=== PATIENT | female | born 1960 | race Caucasian/White ===

== ENCOUNTER 2017-05-23 15:08 | Emergency (ER) | payer SELFPAY ==
--- NOTE | 2017-05-23 15:39 | RAD ---
CHEST 2 VIEWS: Date: 05/23/17 HISTORY: Cough. COMPARISON: 07/14/13. FINDINGS: Cardiac silhouette and pulmonary vasculature are unremarkable. Mediastinum is midline. There is no co nfluent air space consolidation, pneumothorax, or pleural fluid evident. Metallic clips overlie the r ight upper quadrant of the abdomen. IMPRESSION: No active cardiopulmonary abnormalities are demonstrated. POS: [facility]
== END 2017-05-23 16:10 | disposition home or self-care (01) ==
LOC: NAV ERS 15:08
DX: J20.9 Acute bronchitis, unspecified (principal); E78.5 Hyperlipidemia, unspecified; F41.9 Anxiety disorder, unspecified
CPT/HCPCS: 71020

== ENCOUNTER 2018-07-19 14:06 | Emergency (ER) | payer SELFPAY ==
[~2018-07-19 14:06] MED LIST: Iopamidol 370 76% 100 ML VIAL ONE
[2018-07-19 16:24] LABS: ALT (SGPT) 10 U/L (8-55); AST (SGOT) 17 U/L (5-34); Albumin 4.3 g/dL (3.5-5.0); Alkaline Phosphatase 113 U/L (40-150); Anion Gap 13 mmol/L (10-20); BUN (Urea Nitrogen) 12 mg/dL (9.8-20.1); Bilirubin Negative (Negative); Bilirubin, Total 0.2 mg/dL (0.2-1.2); Blood, Urine Negative (Negative); Calc. Creatinine Clearance 0 mL/min (70-130); Calcium 9.8 mg/dL (7.8-10.44); Carbon Dioxide 27 mmol/L (22-29); Chloride 107 mmol/L (98-107); Clarity Clear (Clear); Estimated GFR-MDRD 69; Globulin 3.3 g/dL (2.4-3.5); Glucose 93 mg/dL (70-105); Glucose, Urine (Dipstick) Negative (Negative); Leukocyte Moderate (Negative); Lipase 34 U/L (8-78); Nitrite Negative (Negative); Potassium 3.6 mmol/L (3.5-5.1); Protein, Total 7.6 g/dL (6.0-8.3); Protein, Urine (Dipstick) Negative (Neg-Trace); Sodium 143 mmol/L (136-145); Urobilinogen 0.2 mg/dL (0.2-1.0); pH, Urine 6.5 (5.0-9.0)
[2018-07-19 16:35] LABS: #Basophils 0.1 thou/uL (0.0-0.2); #Eosinphils 0.1 thou/uL (0.0-0.7); #Lymphocytes 2.7 thou/uL (1.20-3.40); #Monocytes 0.4 thou/uL (0.11-0.59); #Neutrophils 3.9 thou/uL (1.40-6.50); %Eosinophils 1.3 % (0.0-10.0); %Lymphocytes 38.3 % (21.0-51.0); %Monocytes 5.3 % (0.0-10.0); %Neutrophils 54.1 % (42.0-75.0); Hemoglobin 11.9 g/dL (12.0-16.0); Mean Corpuscular HGB CONC 32.5 g/dL (32.0-36.0); Mean Corpuscular Hemoglobin 28.6 pg (27.0-31.0); Mean Corpuscular Volume 88.1 fL (78.0-98.0); Mean Platelet Volume 6.7 fL (7.4-10.4); Platelet Count 339 thou/uL (130-400); RBC Distribution Width 13.3 % (11.5-14.5); Red Blood Cell (RBC) Count 4.15 mill/uL (4.20-5.40); White Blood Cell (WBC) Count 7.2 thou/uL (4.8-10.8)
[2018-07-19 16:37] LABS: Bacteria/HPF None Seen HPF (None Seen); RBC/HPF None Seen HPF (0-3); Squamous Epithelial None Seen HPF (0-3); WBC/HPF 0-3 HPF (0-3)
--- NOTE | 2018-07-19 17:21 | RAD ---
CHEST TWO VIEWS: 07/19/18 HISTORY: Chest pain. COMPARISON: 05/20/18. FINDINGS: The cardiac silhouette and pulmonary vasculature are unremarkable. Mediastinum is midline. No conflue nt air space consolidation, pneumothorax or pleural fluid. Numerous metallic clips overlie the right upper quadrant. IMPRESSION: No active cardiopulmonary abnormalities are demonstrated. POS: [facility]
--- NOTE | 2018-07-19 18:40 | CT ---
CT ABDOMEN AND PELVIS WITH IV CONTRAST: 07/19/18 HISTORY: Abdominal pain. COMPARISON: 05/25/18. FINDINGS: Tiny cyst within the left liver lobe is stable. Gallbladder is surgically absent. Gallbladder is surg ically absent. Postoperative changes of the anterior abdominal wall appear to have increased since th e previous exam. No evidence of bowel obstruction. Scattered diverticula without inflammation. Retroa ortic left renal vein. Urinary bladder is incompletely distended. No evidence of bowel obstruction. IMPRESSION: Chronic type findings are stable. No evidence of bowel obstruction, inflammation, or other acute abno rmalities. POS: [facility]
== END 2018-07-19 17:27 | disposition home or self-care (01) ==
LOC: NAV ERS 14:06
DX: R10.811 Right upper quadrant abdominal tenderness (principal); F41.9 Anxiety disorder, unspecified; E78.5 Hyperlipidemia, unspecified
CPT/HCPCS: 71046; 74177; 80053; 81003; 81015; 83690; 85025; 93005; Q9967

== ENCOUNTER 2020-02-16 19:55 | Emergency (ER) | payer SELFPAY ==
[2020-02-16] MEDS ORDERED: Sodium Chloride 0.9% 500 ML ONE (20:26)
[2020-02-16] MEDS ORDERED: Ketorolac Tromethamine 30 MG/ML VIAL ONE (20:33)
[2020-02-16] MEDS ORDERED: diphenhydrAMINE 50 MG/ML VIAL ONE (20:33)
[2020-02-16] MEDS ORDERED: Prochlorperazine 10 MG/2 ML VIAL ONE (20:33)
== END 2020-02-16 21:26 | disposition home or self-care (01) ==
LOC: NAV ERS 19:55
DX: R51 Headache (principal); E78.5 Hyperlipidemia, unspecified
CPT/HCPCS: 96374; 96375; J0780; J1200; J1885; J7030

== ENCOUNTER 2020-07-10 11:30 | Emergency (ER) | payer SELFPAY ==
[2020-07-11 18:25] LABS: SARS-CoV-2 PCR by NAA Not Detected (NotDetected)
== END 2020-07-10 11:57 | disposition home or self-care (01) ==
LOC: NAV ERS 11:30
DX: B34.9 Viral infection, unspecified (principal); Z20.822 Contact with and (suspected) exposure to COVID-19; E78.5 Hyperlipidemia, unspecified
CPT/HCPCS: 87635; 99284; U0003; U0005

== ENCOUNTER 2020-09-18 10:34 | Emergency (ER) | payer OTHER, SELFPAY | END 2020-09-18 11:45 | disposition home or self-care (01) | LOC: NAV ERS 10:34 | DX: S63.502A Unspecified sprain of left wrist, initial encounter (principal); S80.211A Abrasion, right knee, initial encounter; E78.5 Hyperlipidemia, unspecified; W01.0XXA Fall on same level from slipping, tripping and stumbling without subsequent striking against object, initial encounter ==

== ENCOUNTER 2022-05-30 15:23 | Emergency (ER) | payer SELFPAY | END 2022-05-30 16:24 | disposition home or self-care (01) | LOC: NAV ERS 15:23 | DX: J06.9 Acute upper respiratory infection, unspecified (principal); J32.9 Chronic sinusitis, unspecified; B97.89 Other viral agents as the cause of diseases classified elsewhere; E78.5 Hyperlipidemia, unspecified | CPT/HCPCS: 70220; 87804 ==

== ENCOUNTER 2022-08-28 17:20 | Emergency (ER) | payer SELFPAY | END 2022-08-28 18:09 | disposition home or self-care (01) | LOC: NAV ERS 17:20 | DX: S56.911A Strain of unspecified muscles, fascia and tendons at forearm level, right arm, initial encounter (principal); E78.5 Hyperlipidemia, unspecified; W25.XXXA Contact with sharp glass, initial encounter | CPT/HCPCS: 99283 ==

== ENCOUNTER 2023-03-12 17:27 | Emergency (ER) | payer OTHER, SELFPAY | END 2023-03-12 18:53 | disposition home or self-care (01) | LOC: NAV ERS 17:27 | DX: S23.41XA Sprain of ribs, initial encounter (principal); W01.0XXA Fall on same level from slipping, tripping and stumbling without subsequent striking against object, initial encounter ==

== ENCOUNTER 2023-08-28 18:05 | Emergency (ER) | payer BC ==
[2023-08-28] MEDS ORDERED: Cephalexin 250 MG CAP ONE (18:37)
== END 2023-08-28 18:44 | disposition home or self-care (01) ==
LOC: NAV ERS 18:05
DX: K02.9 Dental caries, unspecified (principal); K04.7 Periapical abscess without sinus
CPT/HCPCS: 99282